=== PATIENT | female | born 1940 | race Caucasian/White ===

== ENCOUNTER 2021-04-10 05:49 | Emergency (ER) | payer MEDICARE ==
[~2021-04-10] VITALS: Ht 162.6 cm; Wt 77.0 kg
[2021-04-10 07:07] LABS: BASOPHILS % 0.7 % (0.0-2.0); EOSINOPHILS % 1.4 % (0.0-5.0); HEMATOCRIT. 36.2 % (36.0-48.0); LYMPHOCYTES % 17.1 % (20.0-50.0); MEAN CORPUSCULAR HEMOGLOBIN 30.7 pg (28.0-32.0); MEAN CORPUSCULAR VOLUME 92.1 fL (81.0-99.0); MEAN PLATELET VOLUME 8.4 fl (7.4-10.4); NEUTROPHILS % 75.8 % (40.0-76.0); PLATELET 198 x1000/uL (130-400); RED BLOOD CELL COUNT 3.93 mill/uL (4.2-5.4); RED CELL DISTRIBUTION WIDTH 14.3 % (11.6-14.6)
[2021-04-10 07:17] LABS: CHLORIDE 113 mEq/L (98-107)
[2021-04-10] MEDS ORDERED: TOPUD PO (08:21)
[2021-04-10] MEDS ORDERED: METOCLOPRAMIDE HCL 10MG TABLET PO ONE (08:30)
[2021-04-10] MEDS ORDERED: ACETAMINOPHEN 325MG TABLET PO ONE (08:30)
[2021-04-10 10:03] VITALS: BP 146/74
== END 2021-04-10 10:04 | disposition home or self-care (01) ==
LOC: ER 06:23
DX: R00.2 Palpitations (principal); Z86.718 Personal history of other venous thrombosis and embolism; Z79.01 Long term (current) use of anticoagulants; Z89.522 Acquired absence of left knee
CPT/HCPCS: 36415; 71045; 80053; 83880; 84484; 85025; 93005; 99285; J8597